=== PATIENT | male | born 1980 | race African-American/Black ===

== ENCOUNTER 2016-04-19 07:57 | Emergency (ER) | payer OTHER ==
[~2016-04-19] VITALS: Ht 185.4 cm; Wt 70.0 kg
[~2016-04-19 07:57] MED LIST: CYCL-36 PO; DICL50 PO; HYDR-3533 PO
[2016-04-19 08:00] VITALS: BP 108/67; PULSE 105; RESP 15; TEMP 97.9; O2SAT 99
--- NOTE | 2016-04-19 08:26 | PD ---
HPI Chief Complaint: Back/ Neck Pain or Injury Time Seen by Provider: 08:25 Travel History International Travel<30 days: No Contact w/Intl Traveler<30days: No Traveled to known affect area: No History of Present Illness HPI 35-year-old Afro-Martiniquais male coming in with sudden onset bilateral lower back pain which started while moving a dryer through a door while moving. Patient states he had to stop immediately and laid down due to the pain in his lower back. Patient denies radicular pain into the legs. He denies bowel or bladder problems. Patient states he tried some Tylenol without improvement. Patient states his pain is an 8 out of 10. Patient states the pain is worse with movement this morning. Again he denies weakness or lower extremity numbness or tingling. Patient denies previous history of back pain. He has no known drug allergies. PFSH Past Medical History Blood Disorders: No Heart Rhythm Problems: No Cancer: No Cardiovascular Problems: Yes (PERICARDITIS) High Cholesterol: No Chest Pain: No Congestive Heart Failure: No Diminished Hearing: No Endocrine: No Genitourinary: No Hypertension: No Immune Disorder: No Musculoskeletal: No Neurologic: No Psychiatric: No Reproductive: No Respiratory: No Myocardial Infarction: No Past Surgical History Abdominal Surgery: No Cardiac Surgery: No Ear Surgery: No Endocrine Surgery: No Eye Surgery: No Genitourinary Surgery: No Gynecologic Surgery: No Oral Surgery: No Thoracic Surgery: No Other Surgery: Yes Social History Alcohol Use: Yes (OCC) Tobacco Use: Yes (1/2 PPD) Substance Use: Yes (MARIJUANA) Allergies-Medications (Allergen,Severity, Reaction): Coded Allergies: No Known Allergies (Verified , 04/19/16) Reported Meds & Prescriptions Reported Meds & Active Scripts Active Acetaminophen Extra Strength (Acetaminophen) 500 Mg Cap 1,000 Mg PO Q6H PRN Orphenadrine CR (Orphenadrine Citrate) 100 Mg Tab 100 Mg PO Q12HR Ibuprofen 800 Mg Tab 800 Mg PO Q8H PRN Review of Systems Except as stated in HPI: all other systems reviewed are Neg General / Constitutional: No: Fever Eyes: No: Visual changes HENT: No: Headaches Cardiovascular: No: Chest Pain or Discomfort Respiratory: No: Shortness of Breath Gastrointestinal: No: Abdominal Pain Genitourinary: No: Dysuria Musculoskeletal: No: Pain Skin: No Rash Neurologic: No: Weakness Psychiatric: No: Depression Endocrine: No: Polydipsia Hematologic/Lymphatic: No: Easy Bruising Physical Exam Narrative GENERAL: Patient appears in moderate distress. SKIN: Warm and dry. Normal color. Normal turgor. HEAD: Atraumatic. Normocephalic. EYES: Pupils equal and round. No scleral icterus. No injection or drainage. ENT: No nasal bleeding or discharge. Mucous membranes pink and moist. NECK: Trachea midline. No JVD. CARDIOVASCULAR: Regular rate and rhythm. RESPIRATORY: No accessory muscle use. Clear to auscultation. Breath sounds equal bilaterally. MUSCULOSKELETAL: Extremities without clubbing, cyanosis, or edema. No obvious deformities. Patient has palpable muscle spasms in the lower lumbar paraspinous muscles bilaterally. He has no radicular symptoms at this time. Patient has normal deep tendon reflexes in the patellar and Achilles tendon. Babinski is downgoing bilaterally. No central bony tenderness or step-off is noted. NEUROLOGICAL: Awake and alert. No obvious cranial nerve deficits. Motor grossly within normal limits. Five out of 5 muscle strength in the arms and legs. Normal speech. PSYCHIATRIC: Appropriate mood and affect; insight and judgment normal. Data Data Last Documented VS Vital Signs Date Time Temp Pulse Resp B/P Pulse Ox O2 Delivery O2 Flow Rate FiO2 04/19/16 08:00 97.9 105 15 108/67 99 Orders Orphenadrine Sr (Norflex Cr) (04/19/16 08:30) Ibuprofen (Motrin) (04/19/16 08:30) Orphenadrine Inj (Norflex Inj) (04/19/16 08:45) Ketorolac Inj (Toradol Inj) (04/19/16 08:45) [facility] Medical Decision Making Medical Screen Exam Complete: Yes Emergency Medical Condition: Yes Differential Diagnosis Lumbago. Lower lumbar strain. Muscle spasm. Narrative Course Patient is medically stable at time of exam. Patient was given Toradol 60mg IM and 60mg Norflex IM. Patient is discharged home with Norflex 100 mg twice a day 5 days. He is also given ibuprofen 800 mg 3 times daily with food #30. Is also given Tylenol 500 mg 2 tabs every 6 hours when necessary #60. Work note is given for 2 days. Patient is to use heat and gentle stretching and follow up if symptoms do not improve or worsen with the above treatment. Diagnosis Primary Impression: Lumbar strain Qualified Code: S39.012A - Lumbar strain, initial encounter Referrals: Primary Care Physician Patient Instructions: General Instructions, Low Back Strain (ED), Muscle Spasm (ED) Additional Instructions: Patient was given Toradol 60mg IM and 60mg Norflex IM. Patient is discharged home with Norflex 100 mg twice a day 5 days. He is also given ibuprofen 800 mg 3 times daily with food #30. Is also given Tylenol 500 mg 2 tabs every 6 hours when necessary #60. Work note is given for 2 days. Patient is to use heat and gentle stretching and follow up if symptoms do not improve or worsen with the above treatment. Med/Other Pt SpecificInfo: Prescription(s) given Scripts Acetaminophen (Acetaminophen Extra Strength)500 Mg Cap1,000 Mg PO Q6H PRN (PAIN SCALE 4 TO 10) #60 CAP Ref 1 Prov:Kimberlee Ruiz DO 04/19/16 Orphenadrine ER 12 HR (Orphenadrine CR)100 Mg [id number] Mg PO Q12HR #10 TAB Prov:Kimberlee Ruiz DO 04/19/16 Ibuprofen 800 Mg [id number] Mg PO Q8H PRN (Pain/Inflammation) #30 TAB Prov:Kimberlee Ruiz DO 04/19/16 Disposition: 01 DISCHARGE HOME Condition: Stable Compa Levy Apr 19, 2016 08:26
[2016-04-19] MEDS ORDERED: IBUPROFEN 800 MG TAB PO ONE (08:30)
[2016-04-19] MEDS ORDERED: ORPHENADRINE CITRATE 100 MG SUSTAINED RELEASE TAB PO ONE (08:30)
[2016-04-19] MEDS ORDERED: ORPH100T99 PO (08:33)
[2016-04-19] MEDS ORDERED: IBUP800T23 PO (08:33)
[2016-04-19] MEDS ORDERED: EXTR500C PO (08:33)
[2016-04-19] MEDS ORDERED: KETOROLAC TROMETHAMINE 60 MG/2 ML (IM) VIAL IM ONE (08:45)
[2016-04-19] MEDS ORDERED: ORPHENADRINE INJ 60 MG/2 ML AMP IM ONE (08:45)
== END 2016-04-19 08:51 | disposition home or self-care (01) ==
LOC: NEPB 07:57
DX: S39.012A Strain of muscle, fascia and tendon of lower back, initial encounter (principal); F17.210 Nicotine dependence, cigarettes, uncomplicated; X50.0XXA Overexertion from strenuous movement or load, initial encounter; Y93.89 Activity, other specified; Y92.9 Unspecified place or not applicable
CPT/HCPCS: 96372; 99283; J1885; J2360

== ENCOUNTER 2016-05-14 05:24 | Emergency (ER) | payer MEDICAID ==
[~2016-05-14] VITALS: Ht 185.4 cm; Wt 73.0 kg
[~2016-05-14 05:24] MED LIST changes: -CYCL-36 PO; -DICL50 PO; +EXTR500C PO; -HYDR-3533 PO; +IBUP800T23 PO; +ORPH100T99 PO
[2016-05-14 05:28] VITALS: BP 113/78; PULSE 70; RESP 16; TEMP 98; O2SAT 98
[2016-05-14] MEDS ORDERED: SODIUM CHLOR 0.9% 1000 ML INJ 1,000 ML IV ONE (06:00)
[2016-05-14] MEDS ORDERED: ONDANSETRON HCL 4 MG/2 ML VIAL IV ONE (06:00)
[2016-05-14 06:27] LABS: AUTOMATED NEUTROPHIL # 4.7 TH/MM3 (1.8-7.7); BASOPHIL % 0.2 % (0.0-2.0); EOSINOPHIL # 0.1 TH/MM3 (0-0.4); EOSINOPHIL % 0.7 % (0.0-4.0); HEMATOCRIT 39.1 % (39.0-51.0); HEMO FLAGS DIFF FINAL; LYMPH % 27.8 % (9.0-44.0); LYMPHOCYTE # 2.1 TH/MM3 (1.0-4.8); MEAN CELL VOLUME 93.7 FL (80.0-100.0); MEAN CORPUSCULAR HEMOGLOBIN 32.5 PG (27.0-34.0); MEAN CORPUSCULAR HGB CONC 34.7 % (32.0-36.0); MONO % 8.1 % (0.0-8.0); NEUT % 63.2 % (16.0-70.0); PLATELET COUNT 170 TH/MM3 (150-450); RED BLOOD COUNT 4.18 MIL/MM3 (4.50-5.90); RED CELL DISTRIBUTION WIDTH 12.9 % (11.6-17.2); WHITE BLOOD COUNT 7.4 TH/MM3 (4.0-11.0)
[2016-05-14] MEDS ORDERED: ZOFR4TAB3 SL (06:42)
--- NOTE | 2016-05-14 06:43 | PD ---
HPI Chief Complaint: Abdominal Pain Time Seen by Provider: 05:51 Travel History International Travel<30 days: No Contact w/Intl Traveler<30days: No Traveled to known affect area: No History of Present Illness HPI The patient is a 35 year old male who presents to the [facility] emergency department with a history of midepigastric abdominal pain that began last night prior to going to bed. He reports that this morning when he got up to go to work after eating breakfast the discomfort seems to worsen and the patient began to have nausea and vomiting. The patient reports that he's had vomiting 2, diarrhea 3. He reports that his stool is loose and brown in color. He denies having any blood or mucus in his stool. The patient reports that multiple coworkers have been sick with vomiting and diarrhea last week. 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 He reports that this morning he has had a dry cough, and a clear nasal congestion. The patient denies any recent fevers, neck pain, chest pain, shortness of breath, urinary symptoms, or neurologic symptoms. [facility] Past Medical History Narrative Medical The patient's past medical history is significant for pericarditis diagnosed 2 years ago, history of a heart murmur. Blood Disorders: No Heart Rhythm Problems: No Cancer: No Cardiovascular Problems: Yes (PERICARDITIS) High Cholesterol: No Chest Pain: No Congestive Heart Failure: No Diminished Hearing: No Endocrine: No Genitourinary: No Hypertension: No Immune Disorder: No Musculoskeletal: No Neurologic: No Psychiatric: No Reproductive: No Respiratory: No Myocardial Infarction: No Tetanus Vaccination: > 5 Years Influenza Vaccination: No Past Surgical History Narrative Surgical The patient's past surgical history is significant for none. Abdominal Surgery: No Cardiac Surgery: No Ear Surgery: No Endocrine Surgery: No Eye Surgery: No Genitourinary Surgery: No Gynecologic Surgery: No Oral Surgery: No Thoracic Surgery: No Other Surgery: Yes Social History Alcohol Use: Yes (OCC) Tobacco Use: Yes (1/2 PPD) Substance Use: Yes (MARIJUANA) Allergies-Medications (Allergen,Severity, Reaction): Coded Allergies: No Known Allergies (Verified , 05/14/16) Reported Meds & Prescriptions Reported Meds & Active Scripts Active Zofran Odt (Ondansetron Odt) 4 Mg Tab 4 Mg SL Q6HR PRN Review of Systems Except as stated in HPI: all other systems reviewed are Neg General / Constitutional: No: Fever Eyes: No: Visual changes HENT: Positive: Congestion, No: Headaches Cardiovascular: No: Chest Pain or Discomfort Respiratory: Positive: Cough, No: Shortness of Breath Gastrointestinal: Positive: Nausea, Vomiting, Diarrhea, Abdominal Pain, Changes in Bowel Habits, No: Hematemesis, Hematochezia, Indigestion, Loss of Appetite Genitourinary: No: Dysuria Musculoskeletal: No: Pain Skin: No Rash Neurologic: No: Weakness Psychiatric: No: Depression Endocrine: No: Polydipsia Hematologic/Lymphatic: No: Easy Bruising Physical Exam Narrative General: The patient is a well-developed well-nourished male in no acute distress. Head and Neck exam: Head is normocephalic atraumatic. Eyes: EOMI, pupils are equal round and reactive to light. Nose: Midline septum with pink mucous membranes Mouth: Dentition unremarkable. Moist mucus membranes. Posterior oropharynx is mildly erythematous. No tonsillar hypertrophy. Uvula midline. Airway patent. Neck: No palpable lymphadenopathy. No nuchal rigidity. No thyromegaly. Cardiovascular: Regular rate and rhythm without murmurs, gallops, or rubs. Lungs: Clear to auscultation bilaterally. No wheezes, rhonchi, or rales. Abdomen: Soft, without tenderness to palpation in all 4 quadrants of the abdomen. No guarding, rebound, or rigidity. Normal bowel sounds are audible. No tenderness on palpation of McBurney's point. Negative Claudio's sign. Extremities: No clubbing, cyanosis, or edema. Back: No costovertebral angle tenderness to palpation. Neurologic Exam: Grossly nonfocal. Skin Exam: No rash noted. Intact skin that is warm and dry. Data Data Last Documented VS Vital Signs Date Time Temp Pulse Resp B/P Pulse Ox O2 Delivery O2 Flow Rate FiO2 05/14/16 05:39 16 05/14/16 05:28 98.0 70 113/78 98 Orders Complete Blood Count With Diff (05/14/16 05:51) Comprehensive Metabolic Panel (05/14/16 05:51) C-Reactive Protein (Crp) (05/14/16 05:51) Lipase (05/14/16 05:51) Urinalysis - C+S If Indicated (05/14/16 05:51) Chest, Single Ap (05/14/16 05:51) Iv Access Insert/Monitor (05/14/16 05:51) Ecg Monitoring (05/14/16 05:51) Oximetry (05/14/16 05:51) Sodium Chlor 0.9% 1000 Ml Inj (Ns 1000 M (05/14/16 06:00) Ondansetron Inj (Zofran Inj) (05/14/16 06:00) Electrocardiogram (05/14/16 06:14) Labs Laboratory Tests Test 05/14/16 06:05 White Blood Count 7.4 TH/MM3 Red Blood Count 4.18 MIL/MM3 Hemoglobin 13.6 GM/DL Hematocrit 39.1 % Mean Corpuscular Volume 93.7 FL Mean Corpuscular Hemoglobin 32.5 PG Mean Corpuscular Hemoglobin 34.7 % Concent Red Cell Distribution Width 12.9 % Platelet Count 170 TH/MM3 Mean Platelet Volume 8.5 FL Neutrophils (%) (Auto) 63.2 % Lymphocytes (%) (Auto) 27.8 % Monocytes (%) (Auto) 8.1 % Eosinophils (%) (Auto) 0.7 % Basophils (%) (Auto) 0.2 % Neutrophils # (Auto) 4.7 TH/MM3 Lymphocytes # (Auto) 2.1 TH/MM3 Monocytes # (Auto) 0.6 TH/MM3 Eosinophils # (Auto) 0.1 TH/MM3 Basophils # (Auto) 0.0 TH/MM3 CBC Comment DIFF FINAL Differential Comment Sodium Level 143 MEQ/L Potassium Level 4.2 MEQ/L Chloride Level 109 MEQ/L Carbon Dioxide Level 25.5 MEQ/L Anion Gap 9 MEQ/L Blood Urea Nitrogen 13 MG/DL Creatinine 0.94 MG/DL Estimat Glomerular Filtration 111 ML/MIN Rate Random Glucose 86 MG/DL Calcium Level 8.8 MG/DL Total Bilirubin 0.1 MG/DL Aspartate Amino Transf 17 U/L (AST/SGOT) Alanine Aminotransferase 20 U/L (ALT/SGPT) Alkaline Phosphatase 46 U/L C-Reactive Protein LESS THAN 0.29 MG/DL Total Protein 7.2 GM/DL Albumin 3.8 GM/DL Lipase 317 U/L MDM Medical Decision Making Medical Screen Exam Complete: Yes Emergency Medical Condition: Yes Medical Record Reviewed: Yes Interpretation(s) Vital Signs Date Time Temp Pulse Resp B/P Pulse Ox O2 Delivery O2 Flow Rate FiO2 3/1/17 05:39 16 05/14/16 05:28 98.0 70 16 113/78 98 Laboratory Tests Test 05/14/16 06:05 Red Blood Count 4.18 MIL/MM3 (4.50-5.90) Monocytes (%) (Auto) 8.1 % (0.0-8.0) Chloride Level 109 MEQ/L (98-107) Total Bilirubin 0.1 MG/DL (0.2-1.0) Differential Diagnosis Viral versus bacterial gastroenteritis, versus pancreatitis, versus acid reflux , versus peptic ulcer disease, versus esophagitis, versus gastritis Narrative Course During the course of the patients emergency department visit, the patients history, examination, and differential diagnosis were reviewed with the patient. The patient had IV access obtained and blood work sent for analysis. The patient is placed on a finnish rubber with oximetry and blood pressure monitoring. An EKG was done on arrival. The patient's EKG reveals a sinus bradycardia heart rate of 54, early repolarization pattern, no acute ST segment depression, T waves are inverted in V1. The patient was provided normal saline 1 L IV fluid bolus, Zofran 4 mg IV. The patients laboratory studies were reviewed and remarkable for a white count of 7.4, hemoglobin 13.6, platelets 170 with 8.1 monocytes, CMP is remarkable for chloride of 109, calcium 8.8, total bilirubin 0.1, lipase 317, C-reactive protein less than 0.29 Radiology studies were reviewed and remarkable for a chest x-ray that shows no acute abnormality. The patient was started on oral rehydration therapy. I suspect that the patient 's symptoms are related to a viral gastroenteritis. The patient will be discharged home with a prescription for Zofran. The patient was given a work excuse for the next 2 days. The patient is resting comfortably and feels better, is alert and in no distress. The patients results and examination findings were discussed with the patient. The repeat examination is unremarkable and benign. The history, exam, diagnostic testing, and current condition do not suggest any significant pathology to warrant further testing, continued ED treatment, admission, or surgical evaluation at this point. The vital signs have been stable. The patient does not have uncontrollable pain, intractable vomiting, or other significant symptoms. The patient's condition is stable and appropriate for discharge. The patient will pursue further outpatient evaluation with a primary care physician or other designated or consulting physician as indicated in the discharge instructions. The patient expressed understanding and was agreeable with this plan. Diagnosis Primary Impression: Nausea vomiting and diarrhea Referrals: Primary Care Physician 2 days Patient Instructions: Acute Diarrhea (ED), Acute Nausea and Vomiting (ED), General Instructions Departure Forms: Tests/Procedures, Work Release Enter return to work date: May 16, 2016 Med/Other Pt SpecificInfo: Prescription(s) given Scripts Ondansetron Odt (Zofran Odt)4 Mg Tab4 Mg SL Q6HR PRN (Nausea/Vomiting) #7 TAB Ref 0 Prov:Leslie King MD 05/14/16 Disposition: 01 DISCHARGE HOME Condition: Stable Leslie King MD May 14, 2016 06:43
[2016-05-14 06:48] LABS: ALT (GPT) 20 U/L (12-78); ANION GAP 9 MEQ/L (5-15); AST (GOT) 17 U/L (15-37); BICARBONATE 25.5 MEQ/L (21.0-32.0); BLOOD UREA NITROGEN 13 MG/DL (7-18); CHLORIDE 109 MEQ/L (98-107); GLOMERULAR FILTRATION RATE 111 ML/MIN (>89); POTASSIUM 4.2 MEQ/L (3.5-5.1); SODIUM (NA) 143 MEQ/L (136-145)
--- NOTE | 2016-05-14 06:49 | RADRPT ---
EXAM DATE/TIME: 05/14/2016 06:13 [facility] COMPARISON: CHEST SINGLE AP, November 16, 2015, 8:34. INDICATIONS : Shortness of breath. MEDICAL HISTORY : None. SURGICAL HISTORY : None. ENCOUNTER: Initial ACUITY: 1 day PAIN SCORE: 5/10 LOCATION: Bilateral chest FINDINGS: A single view of the chest demonstrates the lungs to be symmetrically aerated without evidence of mas s, infiltrate or effusion. The cardiomediastinal contours are unremarkable. Osseous structures are intact. CONCLUSION: No acute disease. No significant change has occurred. Ryder Prieto MD on May 14, 2016 at 6:47 Board Certified Radiologist. This report was verified electronically.
[2016-05-14 06:50] LABS: ALKALINE PHOSPHATASE 46 U/L (45-117); TOTAL BILIRUBIN ADULT 0.1 MG/DL (0.2-1.0)
--- NOTE | 2016-05-14 09:35 | EKG ---
Date Performed: 05/14/2016 Time Performed: 06:30:41 PTAGE: 35 years EKG: SINUS BRADYCARDIA EARLY REPOLARIZATION BORDERLINE ECG NO PREVIOUS TRACING DOCTOR: Bryan Gregg Interpretating Date/Time 05/14/2016 09:33:17
== END 2016-05-14 08:09 | disposition home or self-care (01) ==
LOC: NEPE 05:24
DX: R11.2 Nausea with vomiting, unspecified (principal); R19.7 Diarrhea, unspecified; R05 Cough; R09.81 Nasal congestion; R94.31 Abnormal electrocardiogram [ECG] [EKG]; F17.200 Nicotine dependence, unspecified, uncomplicated; Z86.79 Personal history of other diseases of the circulatory system
CPT/HCPCS: 71010; 80053; 83690; 85025; 86140; 93005; 96374; 99284; J2405; J7030

== ENCOUNTER 2016-10-05 11:13 | Emergency (ER) | payer MEDICAID ==
[~2016-10-05] VITALS: Ht 185.4 cm; Wt 72.0 kg
[~2016-10-05 11:13] MED LIST changes: -EXTR500C PO; -IBUP800T23 PO; -ORPH100T99 PO; +ZOFR4TAB3 SL
[2016-10-05 11:15] VITALS: BP 127/82; PULSE 84; RESP 15; TEMP 98.4; O2SAT 98
--- NOTE | 2016-10-05 11:43 | PD ---
HPI Chief Complaint: Cold / Flu Symptoms Time Seen by Provider: 11:29 Travel History International Travel<30 days: No Contact w/Intl Traveler<30days: No Traveled to known affect area: No History of Present Illness HPI 35-year-old healthy male here with complaint of cough. Patient had a flat tire yesterday and was changing it out in the rain. He then went home and the air- conditioned environment. Since he has had a cough productive of clear sputum. No fevers or chills. No recent travel or sick contacts. Patient smokes one to 2 cigarettes per day and marijuana occasionally. PFSH Past Medical History Blood Disorders: No Heart Rhythm Problems: No Cancer: No Cardiovascular Problems: Yes (PERICARDITIS, murmur) High Cholesterol: No Chest Pain: No Congestive Heart Failure: No Diminished Hearing: No Endocrine: No Gastrointestinal Disorders: No Genitourinary: No Hypertension: No Immune Disorder: No Implanted Vascular Access Dvce: No Musculoskeletal: No Neurologic: No Psychiatric: No Reproductive: No Respiratory: No Myocardial Infarction: No Past Surgical History Abdominal Surgery: No Cardiac Surgery: No Ear Surgery: No Endocrine Surgery: No Eye Surgery: No Genitourinary Surgery: No Gynecologic Surgery: No Neurologic Surgery: No Oral Surgery: No Thoracic Surgery: No Other Surgery: Yes Social History Alcohol Use: Yes (OCC) Tobacco Use: Yes (1/2 PPD) Substance Use: Yes (marijuana on occasion) Allergies-Medications (Allergen,Severity, Reaction): Coded Allergies: No Known Allergies (Verified , 05/14/16) Reported Meds & Prescriptions Reported Meds & Active Scripts Active Review of Systems Except as stated in HPI: all other systems reviewed are Neg Physical Exam Narrative GENERAL: Well-appearing male in no acute distress SKIN: Focused skin assessment warm/dry. HEAD: Normocephalic. EYES:No scleral icterus. No injection or drainage. ENT: Mucous membranes pink and moist. NECK: Supple CARDIOVASCULAR: Regular rate and rhythm. RESPIRATORY: No accessory muscle use. Clear to auscultation. Breath sounds equal bilaterally. GASTROINTESTINAL: Abdomen soft, non-tender, nondistended. NEUROLOGICAL: Awake and alert. Normal speech. PSYCHIATRIC: Appropriate mood and affect; insight and judgment normal. Data Data Last Documented VS Vital Signs Date Time Temp Pulse Resp B/P Pulse Ox O2 Delivery O2 Flow Rate FiO2 10/05/16 11:28 68 18 99 Room Air 10/05/16 11:15 98.4 127/82 [facility] Medical Decision Making Medical Screen Exam Complete: Yes Emergency Medical Condition: Yes Medical Record Reviewed: Yes Differential Diagnosis 35-year-old healthy male here with complaint of cough since changing a tire in the rain yesterday. Symptoms consistent with viral URI, less likely bronchitis , pneumonia, postnasal drip Narrative Course Patient reassured, conservative management discharged home Diagnosis Primary Impression: Viral URI Referrals: [facility] as needed Additional Instructions: Tea with honey as discussed Med/Other Pt SpecificInfo: No Change to Meds Disposition: 01 DISCHARGE HOME Condition: Stable Sharron Kessler MD Oct 05, 2016 11:43
== END 2016-10-05 11:58 | disposition home or self-care (01) ==
LOC: NEPD 11:13
DX: J06.9 Acute upper respiratory infection, unspecified (principal); F17.210 Nicotine dependence, cigarettes, uncomplicated
CPT/HCPCS: 99282

== ENCOUNTER 2016-10-16 09:26 | Emergency (ER) | payer MEDICAID ==
[~2016-10-16] VITALS: Ht 185.4 cm; Wt 74.0 kg
[2016-10-16 09:32] VITALS: BP 140/85; PULSE 76; RESP 17; TEMP 97.8; O2SAT 100
[2016-10-16 09:49] VITALS: BP_SYST 125; BP_SYST 128; BP_SYST 142; BP_DIAS 70; BP_DIAS 80; BP_DIAS 85; RESP 16; RESP 17
--- NOTE | 2016-10-16 09:54 | PD ---
HPI Chief Complaint: Dizziness Time Seen by Provider: 09:40 Travel History International Travel<30 days: No Contact w/Intl Traveler<30days: No Traveled to known affect area: No History of Present Illness HPI 36yo M with PMH of pericarditis presents to the ED with c/o episode of feeling lightheaded and nauseous. 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 States he sat and and was given water. He started feeling better on his way here and currently denies any nausea or lightheadedness. Pt did not eat any breakfast today. Blood glucose was 120 by EVAC. Denies any chest pain, sob, vomiting, abdominal pain, focal weakness or numbness. States he has been working 2 jobs and really tired lately. PFSH Past Medical History Blood Disorders: No Heart Rhythm Problems: No Cancer: No Cardiovascular Problems: Yes (HBP) High Cholesterol: No Chest Pain: No Congestive Heart Failure: No Diminished Hearing: No Endocrine: No Gastrointestinal Disorders: No Genitourinary: No Hypertension: No Immune Disorder: No Implanted Vascular Access Dvce: No Musculoskeletal: No Neurologic: No Psychiatric: No Reproductive: No Respiratory: No Myocardial Infarction: No Tetanus Vaccination: > 5 Years Influenza Vaccination: Yes Past Surgical History Abdominal Surgery: No Cardiac Surgery: No Ear Surgery: No Endocrine Surgery: No Eye Surgery: No Genitourinary Surgery: No Gynecologic Surgery: No Neurologic Surgery: No Oral Surgery: No Thoracic Surgery: No Other Surgery: Yes Social History Alcohol Use: Yes (OCC) Tobacco Use: Yes (1/2 PPD) Substance Use: Yes (marijuana on occasion) Allergies-Medications (Allergen,Severity, Reaction): Coded Allergies: No Known Allergies (Verified , 10/16/16) Reported Meds & Prescriptions Reported Meds & Active Scripts Active No Active Prescriptions or Reported Medications Review of Systems Except as stated in HPI: all other systems reviewed are Neg Physical Exam Narrative GENERAL: 36yo M not in distress. SKIN: Focused skin assessment warm/dry. HEAD: Atraumatic. Normocephalic. EYES: Pupils equal and round at 3mm bilaterally. EOMI. No scleral icterus. No injection or drainage. ENT: No nasal bleeding or discharge. Mucous membranes pink and moist. NECK: Trachea midline. No JVD. CARDIOVASCULAR: Regular rate and rhythm. No murmur appreciated. RESPIRATORY: No accessory muscle use. Clear to auscultation. Breath sounds equal bilaterally. GASTROINTESTINAL: Abdomen soft, non-tender, nondistended. MUSCULOSKELETAL: No obvious deformities. No clubbing. No cyanosis. No edema. NEUROLOGICAL: Awake and alert. No obvious cranial nerve deficits. Motor grossly within normal limits. Normal speech. PSYCHIATRIC: Appropriate mood and affect; insight and judgment normal. Data Data Last Documented VS Vital Signs Date Time Temp Pulse Resp B/P Pulse Ox O2 Delivery O2 Flow Rate FiO2 10/16/16 09:49 73 17 125/70 73 16 128/80 73 17 142/85 10/16/16 09:42 100 Room Air 10/16/16 09:32 97.8 Orders Electrocardiogram (10/16/16 ) Complete Blood Count With Diff (10/16/16 09:48) Basic Metabolic Panel (Bmp) (10/16/16 09:48) Orthostatic Vital Signs (10/16/16 09:48) Labs Laboratory Tests Test 10/16/16 08:50 White Blood Count 8.3 TH/MM3 Red Blood Count 4.18 MIL/MM3 Hemoglobin 13.6 GM/DL Hematocrit 39.7 % Mean Corpuscular Volume 95.1 FL Mean Corpuscular Hemoglobin 32.5 PG Mean Corpuscular Hemoglobin 34.2 % Concent Red Cell Distribution Width 13.0 % Platelet Count 167 TH/MM3 Mean Platelet Volume 8.5 FL Neutrophils (%) (Auto) 60.6 % Lymphocytes (%) (Auto) 31.7 % Monocytes (%) (Auto) 7.1 % Eosinophils (%) (Auto) 0.4 % Basophils (%) (Auto) 0.2 % Neutrophils # (Auto) 5.0 TH/MM3 Lymphocytes # (Auto) 2.6 TH/MM3 Monocytes # (Auto) 0.6 TH/MM3 Eosinophils # (Auto) 0.0 TH/MM3 Basophils # (Auto) 0.0 TH/MM3 CBC Comment DIFF FINAL Differential Comment Sodium Level 137 MEQ/L Potassium Level 3.8 MEQ/L Chloride Level 104 MEQ/L Carbon Dioxide Level 26.6 MEQ/L Anion Gap 6 MEQ/L Blood Urea Nitrogen 13 MG/DL Creatinine 0.94 MG/DL Estimat Glomerular Filtration 110 ML/MIN Rate Random Glucose 116 MG/DL Calcium Level 8.9 MG/DL [facility] Medical Decision Making Medical Screen Exam Complete: Yes Emergency Medical Condition: Yes Interpretation(s) EKG: NSR 68bpm. Normal axis. QTc 404ms. Narrow QRS. LVH. Differential Diagnosis Dehydration vs. electrolyte abnormality vs. vasovagal near syncope Narrative Course 36yo M with no PMH here with episode of lightheadedness. Pt is currently asymptomatic and feels better. Labs reviewed, no leukocytosis. BMP unremarkable. Glucose 116. Orthostatic negative. Pt has been observed in the ED and has no symptoms. Return precautions given. Diagnosis Primary Impression: Lightheadedness Patient Instructions: General Instructions Departure Forms: Tests/Procedures, Work Release Enter return to work date: Oct 18, 2016 Additional Instructions: Please follow up with your PMD in 3-7 days. Return to the ED if symptoms worsen. Med/Other Pt SpecificInfo: No Change to Meds Scripts No Active Prescriptions or Reported Meds Disposition: 01 DISCHARGE HOME Condition: Stable MontenegroRenée Oct 16, 2016 09:54
[2016-10-16 10:05] LABS: BASOPHIL % 0.2 % (0.0-2.0); EOSINOPHIL % 0.4 % (0.0-4.0); HEMATOCRIT 39.7 % (39.0-51.0); HEMO FLAGS DIFF FINAL; LYMPH % 31.7 % (9.0-44.0); LYMPHOCYTE # 2.6 TH/MM3 (1.0-4.8); MEAN CELL VOLUME 95.1 FL (80.0-100.0); MEAN CORPUSCULAR HEMOGLOBIN 32.5 PG (27.0-34.0); MEAN CORPUSCULAR HGB CONC 34.2 % (32.0-36.0); MONO % 7.1 % (0.0-8.0); NEUT % 60.6 % (16.0-70.0); PLATELET COUNT 167 TH/MM3 (150-450); RED BLOOD COUNT 4.18 MIL/MM3 (4.50-5.90); WHITE BLOOD COUNT 8.3 TH/MM3 (4.0-11.0)
[2016-10-16 10:42] LABS: BICARBONATE 26.6 MEQ/L (21.0-32.0); POTASSIUM 3.8 MEQ/L (3.5-5.1)
[2016-10-16 11:06] VITALS: BP 130/77; TEMP 97.8
--- NOTE | 2016-10-16 15:00 | EKG ---
Date Performed: 10/16/2016 Time Performed: 09:35:15 PTAGE: 36 years EKG: Sinus rhythm VOLTAGE CRITERIA FOR LVH When compared to prior tracing, the patient is no longer Bradycardic. ABNOR MAL ECG PREVIOUS TRACING : 05/14/2016 06.30 DOCTOR: Lacey Hull Interpretating Date/Time 10/16/2016 14:59:35
== END 2016-10-16 11:06 | disposition home or self-care (01) ==
LOC: NEPD 09:26
DX: R42 Dizziness and giddiness (principal); R11.0 Nausea; R00.1 Bradycardia, unspecified; R94.31 Abnormal electrocardiogram [ECG] [EKG]; F17.200 Nicotine dependence, unspecified, uncomplicated
CPT/HCPCS: 80048; 85025; 93005; 99283

== ENCOUNTER 2016-12-15 06:33 | Emergency (ER) | payer MEDICAID ==
[~2016-12-15] VITALS: Ht 15.2 cm; Wt 70.0 kg
[2016-12-15 06:35] VITALS: BP 120/71; PULSE 90; RESP 16; TEMP 98.3; O2SAT 96
[2016-12-15] MEDS ORDERED: IBUP800T23 PO (06:51)
[2016-12-15] MEDS ORDERED: CYCL1TAB29 PO (06:51)
--- NOTE | 2016-12-15 06:52 | PD ---
HPI Chief Complaint: Back/ Neck Pain or Injury Time Seen by Provider: 06:45 Travel History International Travel<30 days: No Contact w/Intl Traveler<30days: No Traveled to known affect area: No History of Present Illness HPI Patient is a 36-year-old male presenting to emergency for evaluation of low back pain. Patient states he was picking up furniture last night and felt his back pull, he took Aleve at midnight and woke up this morning and the pain was worse. He denies any numbness or tingling in his legs, no bladder or bowel incontinence,paresthesia. He reports the pain is an 8 out of 10. Pain is worse with movement PFSH Past Medical History Cardiovascular Problems: Yes (HBP) Tetanus Vaccination: < 5 Years LMP: 1 Past Surgical History Abdominal Surgery: No Cardiac Surgery: No Ear Surgery: No Endocrine Surgery: No Eye Surgery: No Genitourinary Surgery: No Gynecologic Surgery: No Neurologic Surgery: No Oral Surgery: No Thoracic Surgery: No Other Surgery: Yes Social History Alcohol Use: Yes (OCC) Tobacco Use: Yes (1/2 PPD) Substance Use: No Allergies-Medications (Allergen,Severity, Reaction): Coded Allergies: No Known Allergies (Verified , 10/16/16) Reported Meds & Prescriptions Reported Meds & Active Scripts Active No Active Prescriptions or Reported Medications Review of Systems Except as stated in HPI: all other systems reviewed are Neg Musculoskeletal: Positive: Myalgias, Cramping Physical Exam Narrative GENERAL: Well-developed, well-nourished, alert male. SKIN: Warm and dry. HEAD: Atraumatic. Normocephalic. EYES: Pupils equal and round. No scleral icterus. No injection or drainage. ENT: No nasal bleeding or discharge. Mucous membranes pink and moist. NECK: Trachea midline. No JVD. CARDIOVASCULAR: Regular rate and rhythm. RESPIRATORY: No accessory muscle use. Clear to auscultation. Breath sounds equal bilaterally. GASTROINTESTINAL: Abdomen soft, non-tender, nondistended. Hepatic and splenic margins not palpable. MUSCULOSKELETAL: Extremities without clubbing, cyanosis, or edema. No obvious deformities. Tenderness to palpation in paraspinal musculature and lumbar region bilaterally. No spinal tenderness or step-off noted. NEUROLOGICAL: Awake and alert. No obvious cranial nerve deficits. Motor grossly within normal limits. Five out of 5 muscle strength in the arms and legs. Normal speech. PSYCHIATRIC: Appropriate mood and affect; insight and judgment normal. Data Data Last Documented VS Vital Signs Date Time Temp Pulse Resp B/P (MAP) Pulse Ox O2 Delivery O2 Flow Rate FiO2 12/15/16 06:35 98.3 90 16 120/71 (87) 96 Room Air MDM Medical Decision Making Medical Screen Exam Complete: Yes Emergency Medical Condition: Yes Interpretation(s) Vital Signs Date Time Temp Pulse Resp B/P (MAP) Pulse Ox O2 Delivery O2 Flow Rate FiO2 12/15/16 06:35 98.3 90 16 120/71 (87) 96 Room Air Differential Diagnosis Sprain versus strain versus discogenic pain versus spasm Narrative Course Patient presented for evaluation of low back pain that started last night after he was lifting furniture, the pain was worse upon awakening this morning. Abrasion is neurovascularly and neurologically intact. Physical examination appears most consistent with a musculoskeletal strain and spasm. Patient has tenderness to the paraspinal musculature in the lumbar region. He will be given Toradol, Norflex, dexamethasone now. He is encouraged to take medications consistently for best relief. He was encouraged to apply warm moist heat to affected area, continue range of motion exercises, avoid bed rest , avoid exacerbating activities. He was encouraged to follow-up with his primary doctor. He was encouraged to return return to emergency department immediately for any new or worsening symptoms. Patient verbalized understanding of these instructions. Patient is stable for discharge. Diagnosis Primary Impression: Spasm of lumbar paraspinous muscle Additional Impression: Lumbar strain Qualified Codes: S39.012A - Strain of muscle, fascia and tendon of lower back , initial encounter Referrals: Primary Care Physician 1 week Patient Instructions: General Instructions, Muscle Spasm (ED), Muscle Strain ( ED) Departure Forms: Tests/Procedures, Work Release Enter return to work date: Dec 16, 2016 Additional Instructions: Follow-up with a primary doctor Apply warm moist heat to the affected area, continue range of motion exercises, avoid bed rest, avoid exacerbating activities Take medications as directed Return to emergency department immediately for any new or worsening symptoms Med/Other Pt SpecificInfo: Prescription(s) given Scripts Cyclobenzaprine (Flexeril) 10 Mg Tab 10 MG PO TID Y for MUSCLE SPASM, #30 TAB 0 Refills Prov: Laura Bennett 12/15/16 Ibuprofen (Ibuprofen) 800 Mg Tab 800 MG PO Q6HR Y for PAIN, #40 TAB 0 Refills Prov: Laura Bennett 12/15/16 Disposition: 01 DISCHARGE HOME Condition: Stable Laura Bennett Dec 15, 2016 06:52
[2016-12-15] MEDS ORDERED: KETOROLAC TROMETHAMINE 60 MG/2 ML (IM) VIAL IM ONE (07:00)
[2016-12-15] MEDS ORDERED: DEXAMETHASONE SOD PHOS 20 MG/5 ML VIAL IM ONE (07:00)
[2016-12-15] MEDS ORDERED: ORPHENADRINE INJ 60 MG/2 ML AMP IM ONE (07:00)
== END 2016-12-15 07:20 | disposition home or self-care (01) ==
LOC: NEPD 06:33
DX: S39.012A Strain of muscle, fascia and tendon of lower back, initial encounter (principal); M62.830 Muscle spasm of back; F17.200 Nicotine dependence, unspecified, uncomplicated; X50.0XXA Overexertion from strenuous movement or load, initial encounter
CPT/HCPCS: 96372; 99284; J1100; J1885; J2360

== ENCOUNTER 2017-04-13 17:58 | Emergency (ER) | payer MEDICAID ==
[~2017-04-13 17:58] MED LIST changes: +CYCL10TA PO; +IBUP1TAB7 PO; -ZOFR4TAB3 SL
[2017-04-13 18:00] VITALS: BP 141/84; PULSE 99; RESP 16; TEMP 102.8; O2SAT 100
[2017-04-13] MEDS ORDERED: ONDANSETRON HCL 4 MG/2 ML VIAL IM ONE (18:15)
[2017-04-13 19:11] LABS: AUTOMATED NEUTROPHIL # 5.3 TH/MM3 (1.8-7.7); BASOPHIL % 0.3 % (0.0-2.0); EOSINOPHIL % 0.4 % (0.0-4.0); HEMATOCRIT 38.3 % (39.0-51.0); HEMOGLOBIN 13.6 GM/DL (13.0-17.0); LYMPH % 12.9 % (9.0-44.0); LYMPHOCYTE # 0.9 TH/MM3 (1.0-4.8); MEAN CELL VOLUME 93.5 FL (80.0-100.0); MEAN CORPUSCULAR HEMOGLOBIN 33.2 PG (27.0-34.0); MEAN CORPUSCULAR HGB CONC 35.5 % (32.0-36.0); MEAN PLATELET VOLUME 8.1 FL (7.0-11.0); MONO % 8.7 % (0.0-8.0); MONOCYTE # 0.6 TH/MM3 (0-0.9); NEUT % 77.7 % (16.0-70.0); PLATELET COUNT 166 TH/MM3 (150-450); RED CELL DISTRIBUTION WIDTH 12.4 % (11.6-17.2); WHITE BLOOD COUNT 6.8 TH/MM3 (4.0-11.0)
--- NOTE | 2017-04-13 19:11 | RADRPT ---
EXAM DATE/TIME: 04/13/2017 18:22 [facility] COMPARISON: No previous studies available for comparison. INDICATIONS : Fever. MEDICAL HISTORY : None. SURGICAL HISTORY : None. ENCOUNTER: Initial ACUITY: 1 day PAIN SCORE: 4/10 LOCATION: Bilateral chest FINDINGS: PA and lateral views of the chest demonstrate the lungs to be symmetrically aerated without evidence of mass, infiltrate or effusion. The cardiomediastinal contours are unremarkable. Osseous structure s are intact. CONCLUSION: No acute disease. Glen Sahu MD on April 13, 2017 at 19:09 Board Certified Radiologist. This report was verified electronically.
[2017-04-13 19:34] LABS: AST (GOT) 23 U/L (15-37); BICARBONATE 28.4 MEQ/L (21.0-32.0); BLOOD UREA NITROGEN 9 MG/DL (7-18); CALCIUM 8.9 MG/DL (8.5-10.1); CHLORIDE 105 MEQ/L (98-107); CREATININE 1.36 MG/DL (0.60-1.30); GLOMERULAR FILTRATION RATE 72 ML/MIN (>89); GLUCOSE,RANDOM 103 MG/DL (74-106); SODIUM (NA) 137 MEQ/L (136-145)
[2017-04-13 19:39] LABS: ALKALINE PHOSPHATASE 55 U/L (45-117); ALT (GPT) 24 U/L (12-78); TOTAL BILIRUBIN ADULT 0.2 MG/DL (0.2-1.0); TOTAL PROTEIN 7.8 GM/DL (6.4-8.2); TROPONIN I LESS THAN 0.02 NG/ML (0.02-0.05)
[2017-04-13] MEDS ORDERED: SODIUM CHLOR 0.9% 1000 ML INJ 1,000 ML IV ONE ×2 (21:30→22:30)
[2017-04-13] MEDS ORDERED: PROMETHAZINE INJ 25 MG/ML VIAL IM ONE (21:30)
[2017-04-13] MEDS ORDERED: ACETAMINOPHEN 500 MG CPLT PO ONE (21:30)
[2017-04-13 22:17] VITALS: BP 124/61; PULSE 97; RESP 20; TEMP 99.5; O2SAT 100
--- NOTE | 2017-04-13 22:25 | PD ---
HPI Chief Complaint: Cold / Flu Symptoms Time Seen by Provider: 21:19 Travel History International Travel<30 days: No Contact w/Intl Traveler<30days: No Traveled to known affect area: No History of Present Illness HPI 36-year-old male presents emergency department with cough, congestion, nausea with vomiting that started last night. States that his children have been sick with the flu diagnosis as well. States that he has had a temperature as well but does not know the actual number. States that he has felt nauseous and has difficulty with keeping fluids and other foods down. Patient denies abdominal pain, back pain. Denies leg pain. Denies chronic medical issues and medication use. PFSH Past Medical History Cardiomyopathy: Yes (HEART MURMUR) Cardiovascular Problems: Yes (HBP) Diminished Hearing: No Influenza Vaccination: No Past Surgical History Abdominal Surgery: No Cardiac Surgery: No Ear Surgery: No Endocrine Surgery: No Eye Surgery: No Genitourinary Surgery: No Gynecologic Surgery: No Neurologic Surgery: No Oral Surgery: No Thoracic Surgery: No Other Surgery: Yes Social History Alcohol Use: Yes (OCC) Tobacco Use: No Substance Use: No Allergies-Medications (Allergen,Severity, Reaction): Coded Allergies: No Known Allergies (Verified , 12/15/16) Reported Meds & Prescriptions Reported Meds & Active Scripts Active Tamiflu (Oseltamivir Phosphate) 75 Mg Cap 75 Mg PO BID 5 Days Zofran (Ondansetron HCl) 4 Mg Tab 4 Mg PO Q8HR PRN 5 Days Flexeril (Cyclobenzaprine HCl) 10 Mg Tab 10 Mg PO TID PRN Ibuprofen 800 Mg Tab 800 Mg PO Q6HR PRN Review of Systems Except as stated in HPI: all other systems reviewed are Neg Physical Exam Narrative GENERAL: Well-nourished, well-developed patient in mild distress, retching upon initial assessment SKIN: Focused skin assessment warm/dry. HEAD: Normocephalic. EYES: No scleral icterus. No injection or drainage. NECK: Supple, trachea midline. No JVD or lymphadenopathy. No pharyngeal injection CARDIOVASCULAR: Regular rate and rhythm without murmurs, gallops, or rubs. RESPIRATORY: Breath sounds equal bilaterally. No accessory muscle use. GASTROINTESTINAL: Abdomen soft, non-tender, nondistended. MUSCULOSKELETAL: No cyanosis, or edema. BACK: Nontender without obvious deformity. No CVA tenderness. Data Data Last Documented VS Vital Signs Date Time Temp Pulse Resp B/P (MAP) Pulse Ox O2 Delivery O2 Flow Rate FiO2 04/13/17 22:17 99.5 97 20 124/61 (82) 100 Nasal Cannula 1.00 Orders Orders Ondansetron Inj (Zofran Inj) (04/13/17 18:15) Complete Blood Count With Diff (04/13/17 18:13) Comprehensive Metabolic Panel (04/13/17 18:13) Influenzae A/B Antigen (04/13/17 18:13) Chest, Pa & Lat (04/13/17 ) Creatine Kinase (Cpk) (04/13/17 18:13) Troponin I (04/13/17 18:13) Electrocardiogram (04/13/17 ) Promethazine Inj (Phenergan Inj) (04/13/17 21:30) Sodium Chlor 0.9% 1000 Ml Inj (Ns 1000 M (04/13/17 21:30) Acetaminophen (Tylenol) (04/13/17 21:30) Sodium Chlor 0.9% 1000 Ml Inj (Ns 1000 M (04/13/17 22:30) Ed Discharge Order (04/13/17 22:45) Labs Laboratory Tests Test 04/13/17 18:42 White Blood Count 6.8 TH/MM3 Red Blood Count 4.10 MIL/MM3 Hemoglobin 13.6 GM/DL Hematocrit 38.3 % Mean Corpuscular Volume 93.5 FL Mean Corpuscular Hemoglobin 33.2 PG Mean Corpuscular Hemoglobin Concent 35.5 % Red Cell Distribution Width 12.4 % Platelet Count 166 TH/MM3 Mean Platelet Volume 8.1 FL Neutrophils (%) (Auto) 77.7 % Lymphocytes (%) (Auto) 12.9 % Monocytes (%) (Auto) 8.7 % Eosinophils (%) (Auto) 0.4 % Basophils (%) (Auto) 0.3 % Neutrophils # (Auto) 5.3 TH/MM3 Lymphocytes # (Auto) 0.9 TH/MM3 Monocytes # (Auto) 0.6 TH/MM3 Eosinophils # (Auto) 0.0 TH/MM3 Basophils # (Auto) 0.0 TH/MM3 CBC Comment DIFF FINAL Differential Comment Blood Urea Nitrogen 9 MG/DL Creatinine 1.36 MG/DL Random Glucose 103 MG/DL Total Protein 7.8 GM/DL Albumin 4.0 GM/DL Calcium Level 8.9 MG/DL Alkaline Phosphatase 55 U/L Aspartate Amino Transf (AST/SGOT) 23 U/L Alanine Aminotransferase (ALT/SGPT) 24 U/L Total Bilirubin 0.2 MG/DL Sodium Level 137 MEQ/L Potassium Level 3.5 MEQ/L Chloride Level 105 MEQ/L Carbon Dioxide Level 28.4 MEQ/L Anion Gap 4 MEQ/L Estimat Glomerular Filtration Rate 72 ML/MIN Total Creatine Kinase 172 U/L Troponin I LESS THAN 0.02 NG/ML MDM Medical Decision Making Medical Screen Exam Complete: Yes Emergency Medical Condition: Yes Differential Diagnosis Influenza, viral syndrome, upper respiratory infection Narrative Course 36-year-old male presents emergency part with cough, congestion, nausea with vomiting that started last night. States that his children have been sick with the flu diagnosis as well. States that he has had a temperature as well but does not know the actual number. States that he has felt nauseous and has difficulty with taking keeping fluids and other foods down. Patient denies abdominal pain, back pain. Denies leg pain. Denies chronic medical issues and medication use. Initial temperature 102.8, decreased to 99 while in the room before Tylenol administration. 2 L IV fluids, Zofran, Phenergan, tylenol administered. Patient does feel better. Pt will be discharged with zofran & tamiflu. Pt to follow up with his PCP. Encourage healthy diet with good hydration. Avoid contact with others to avoid spreading flu. Diagnosis Primary Impression: Influenza A Referrals: Primary Care Physician Departure Forms: Tests/Procedures, Work Release Enter return to work date: Apr 17, 2017 Additional Instructions: Continue Tylenol or Motrin per package instructions. Encourage fluid intake and proper nutrition. Follow-up with primary care physician Scripts Oseltamivir (Tamiflu) 75 Mg Cap 75 MG PO BID for Mgmt Viral Infection for 5 Days, #10 CAP 0 Refills Prov: Winter Cottrell 04/13/17 Ondansetron (Zofran) 4 Mg Tab 4 MG PO Q8HR Y for NAUSEA OR VOMITING for 5 Days, TAB 0 Refills Prov: Winter Cottrell 04/13/17 Disposition: 01 DISCHARGE HOME Condition: Stable Winter Cottrell Apr 13, 2017 22:25
[2017-04-13] MEDS ORDERED: ZOFR4TAB PO (22:58)
[2017-04-13] MEDS ORDERED: OSEL75 PO (23:01)
--- NOTE | 2017-04-15 00:50 | EKG ---
Date Performed: 04/13/2017 Time Performed: 18:37:00 PTAGE: 36 years EKG: Sinus rhythm WITH SHORT SD INTERVAL VOLTAGE CRITERIA FOR LVH NONSPECIFIC ST & T-WAVE ABNORMALITY ABNORMAL ECG PREVIOUS TRACING : 10/16/2016 09.35 Since the prior tracing, there has been no significant weir DOCTOR: Aubrey Rae Interpretating Date/Time 04/15/2017 00:49:59
== END 2017-04-13 23:54 | disposition home or self-care (01) ==
LOC: NEPC 17:58
DX: J09.X2 Influenza due to identified novel influenza A virus with other respiratory manifestations (principal); R94.31 Abnormal electrocardiogram [ECG] [EKG]; I10 Essential (primary) hypertension; I42.9 Cardiomyopathy, unspecified
CPT/HCPCS: 71046; 80053; 82550; 84484; 85025; 87804; 93005; 96360; 96372; 99285; J2550; J7030